=== PATIENT | female | born 1955 | race Two or more races ===

== ENCOUNTER 2021-09-17 10:34 | Day surgery (SDC) | payer OTHER ==
[~2021-09-17 10:34] MED LIST: ZESTRIL5 MG PO
== END 2021-09-17 20:20 | disposition home or self-care (01) ==
LOC: CIR.AMB 10:34
PROVIDERS: ATTEND Obstetrics & Gynecology Obstetrics
DX: N85.00 Endometrial hyperplasia, unspecified (principal); I10 Essential (primary) hypertension; E66.9 Obesity, unspecified